=== PATIENT | female | born 1960 | race Caucasian/White ===

== ENCOUNTER 2018-11-21 02:50 | Emergency (ER) | payer OTHER ==
[~2018-11-21] VITALS: Wt 74.5 kg
[2018-11-21] MEDS ORDERED: METHYLPREDNISOLONE 125 MG INJ IV ONE (03:30)
[2018-11-21] MEDS ORDERED: DIPHENHYDRAMINE 50 MG INJ IV ONE (03:30)
[2018-11-21] MEDS ORDERED: FAMOTIDINE 20 MG INJ IV ONE (03:30)
[2018-11-21] MEDS ORDERED: PRED20TA PO (03:34)
--- NOTE | 2018-11-21 03:52 | ERD ---
ER Documentation Chief Complaint Chief Complaint C/O FEVER AND RED, ITCHY SKIN X'S 1 DAY HPI 58-year-old female presents with redness and itching across her face bilateral arms and trunk. Says it started 2 hours ago. Denies any history of allergies. Denies wheezing or difficulty breathing. Denies tongue or lip swelling. States that she has not started any new foods, drugs, soaps, detergents. Denies past medical history. Denies allergies. Denies surgeries. Denies alcohol, tobacco, drug use. Up to date on vaccines. ROS All systems reviewed and are negative except as per history of present illness. Medications Home Meds Active Scripts Acetaminophen* (Tylophen*) 500 Mg Capsule, 2 CAP PO Q8H PRN for HEADACHE, #20 CAP 0 Refills Prov:BONNIE GILES 11/21/18 Prednisone* (Prednisone*) 20 Mg Tab, 40 MG PO DAILY for allergic reaction for 5 Days, #10 TAB 0 Refills Prov:BONNIE GILES 11/21/18 Allergies Allergies: Coded Allergies: No Known Allergy (Unverified , 11/21/18) PMhx/Soc Medical and Surgical Hx: pt denies Surgical Hx Hx Cardiac Disorders: Yes (HTN) Hx Alcohol Use: No Hx Substance Use: No Hx Tobacco Use: No Smoking Status: Never smoker FmHx Family History: No diabetes, No coronary disease, No other Physical Exam Vitals Vital Signs Date Temp Pulse Resp B/P (MAP) Pulse Ox O2 O2 Flow FiO2 Time Delivery Rate 11/21/18 98.8 80 20 170/78 99 Room Air 05:00 (108) 11/21/18 98.0 87 18 132/98 98 02:56 (109) Physical Exam General: Well developed, well nourished. No acute distress.n Eyes: No icterus, lesions, injection, or edema. Throat: No tonsillar erythema, edema, or exudates noted bilaterally. No masses, lesions, or abscesses noted. Uvula midline. Airway patent. Mouth: Mucus membranes moist. No drooling, ulcers, bleeding, or lesions, noted. Neck: No lymphadenopathy noted. Tracheal midline, no goiter or nodules noted. No JVD. Heart: RR w/o murmur, rubs, or gallops. Lungs: Clear to auscultation bilaterally w/o wheezes, crackles, rhonchi. Symmetric rise and fall. Equal breath sounds. Skin: Urticarious lesions noted to bilateral arms and trunk. No vesicles or papules noted. Psych: Normal mood and affect. Results 24 hrs Current Medications Medications Dose Sig/Pamela Start Time Status Last (Trade) Ordered Route PRN Stop Time Admin Dose Reason Admin Famotidine 20 mg ONCE ONCE 11/21/18 DC 11/21/18 (Pepcid Iv) IV 03:30 11/21/18 03:47 03:31 50 mg ONCE ONCE 11/21/18 DC 11/21/18 Diphenhydrami IV 03:30 11/21/18 03:47 ne HCl 03:31 (Benadryl) 125 mg ONCE ONCE 11/21/18 DC 11/21/18 Methylprednis IV 03:30 11/21/18 03:47 olone Sodium 03:31 Succinate (Solu-Medrol) Procedures/MDM ER Course: Pepcid, Benadryl, prednisone given. Urticaria and pruritis resolved. MDM: 58-year-old female presents with redness and itching across her face bilateral arms and trunk. Says it started 2 hours ago. Denies any history of allergies. Denies wheezing or difficulty breathing. Denies tongue or lip swelling. States that she has not started any new foods, drugs, soaps, detergents. Patient was treated for allergic reaction ER discharged with Rx for 5 days prednisone. Low suspicion for anaphylaxis based on exam and history. I have low suspicion for angioedema on exam and history. After treatment was given patient stated she had a mild headache with no focal deficits so I prescribed her tylenol. Patient discharged with strict ER precautions. Patient advised to follow up with PMD. All questions answered at discharge. Departure Diagnosis: Primary Impression: Allergic reaction Encounter type: initial encounter Qualified Codes: T78.40XA - Allergy, unspecified, initial encounter Condition: Stable Referrals: [facility] YOU HAVE RECEIVED A MEDICAL SCREENING EXAM AND THE RESULTS INDICATE THAT YOU DO NOT HAVE A CONDITION THAT REQUIRES URGENT TREATMENT IN THE EMERGENCY DEPARTMENT. FURTHER EVALUATION AND TREATMENT OF YOUR CONDITION CAN WAIT UNTIL YOU ARE SEEN IN YOUR DOCTORS OFFICE WITHIN THE NEXT 1-2 DAYS. IT IS YOUR RESPONSIBILITY TO MAKE AN APPOINTMENT FOR FOLOW-UP CARE. IF YOU HAVE A PRIMARY DOCTOR --you should call your primary doctor and schedule an appointment IF YOU DO NOT HAVE A PRIMARY DOCTOR YOU CAN CALL OUR PHYSICIAN REFERRAL HOTLINE AT IF YOU CAN NOT AFFORD TO SEE A PHYSICIAN YOU CAN CHOSE FROM THE FOLLOWING [facility] [address] [facility] [address] [facility] [address] [facility] [address] [facility] [address] [facility]. [facility]. [address] Additional Instructions: FOLLOW UP WITH YOUR PRIMARY CARE PHYSICIAN TOMORROW.Return to this facility if you are not improving as expected. BONNIE GILES Nov 21, 2018 03:51
[2018-11-21] MEDS ORDERED: ACET500C5 PO (04:38)
[2018-11-21 05:00] VITALS: BP 170/78; PULSE 80; RESP 20
== END 2018-11-21 05:01 | disposition home or self-care (01) ==
LOC: FTE 02:50
DX: L50.9 Urticaria, unspecified (principal); I10 Essential (primary) hypertension
CPT/HCPCS: 96374; 96375; J1200; J2930; Z7502; Z7610

== ENCOUNTER 2019-03-13 08:12 | Emergency (ER) | payer OTHER ==
[~2019-03-13] VITALS: Wt 71.4 kg
[~2019-03-13 08:12] MED LIST: ACET500C5 PO; PRED20TA PO
[2019-03-13 08:16] VITALS: BP 147/69; PULSE 78; RESP 20
[2019-03-13] MEDS ORDERED: ACETAMINOPHEN 500 MG TAB PO STA (08:48)
[2019-03-13] MEDS ORDERED: DEXAMETHASONE 10 MG/ML 1 ML INJ IM ONE (09:00)
[2019-03-13] MEDS ORDERED: BENZ-6 PO (10:04)
[2019-03-13] MEDS ORDERED: ACET500C5 PO (10:04)
[2019-03-13] MEDS ORDERED: GUAI118L22 PO (10:04)
[2019-03-13] MEDS ORDERED: CETI10TA19 PO (10:07)
--- NOTE | 2019-03-13 11:11 | ERD ---
ER Documentation Chief Complaint Chief Complaint cough w phlegm HPI History of Present Illness: 58-year-old female with past medical history of hypertension coming in today with complaint of productive cough, headache, body aches. Patient reports symptoms have been present for 2 to 3 days. Patient reports she feels like she has a lot of chest congestioN which she is unable to get phlegm up. Patient denies any other associated symptoms At home pharmacological/nonpharmacological treatment for symptoms: Vicks VapoRub with some relief Denies social concerns; Denies recent foreign travel ROS All systems reviewed and are negative except as per history of present illness. Medications Home Meds Active Scripts Cetirizine Hcl* (Cetirizine Hcl*) 10 Mg Tablet, 10 MG PO DAILY for COUGH/ALLERGIES, #30 TAB Prov:NAINA CHAVEZ V CLINICAL NURSING INSTRUCTOR 03/13/19 Guaifenesin/Codeine Phosphate (CHERATUSSIN AC SYRUP) 118 Ml Liquid, 10 ML PO Q8 for COUGH/CHEST CONGESTION, #90 ML Prov:NAINA CHAVEZ V CLINICAL NURSING INSTRUCTOR 03/13/19 Benzonatate* (Tessalon Perle*) 100 Mg Capsule, 100 MG PO Q8H PRN for COUGH, #21 CAP Prov:NAINA CHAVEZ V CLINICAL NURSING INSTRUCTOR 03/13/19 Acetaminophen* (Tylophen*) 500 Mg Capsule, 2 CAP PO Q8H PRN for PAIN AND OR ELEVATED TEMP, #20 CAP Prov:NAINA CHAVEZ V CLINICAL NURSING INSTRUCTOR 03/13/19 Acetaminophen* (Tylophen*) 500 Mg Capsule, 2 CAP PO Q8H PRN for HEADACHE, #20 C AP 0 Refills Prov:BONNIE GILES 11/21/18 Prednisone* (Prednisone*) 20 Mg Tab, 40 MG PO DAILY for allergic reaction for 5 Days, #10 TAB 0 Refills Prov:BONNIE GILES 11/21/18 Allergies Allergies: Coded Allergies: No Known Allergy (Unverified , 11/21/18) PMhx/Soc Medical and Surgical Hx: pt denies Medical Hx, pt denies Surgical Hx Hx Cardiac Disorders: Yes (HTN) Hx Alcohol Use: No Hx Substance Use: No Hx Tobacco Use: No Smoking Status: Never smoker FmHx Family History: No diabetes, No coronary disease Physical Exam Vitals Vital Signs Date Temp Pulse Resp B/P (MAP) Pulse Ox O2 O2 Flow FiO2 Time Delivery Rate 03/13/19 99.4 78 20 147/69 99 08:16 (95) Physical Exam Const: No acute distress, afebrile Head: Atraumatic, no tenderness to palpation over his maxillary or frontal sinuses Eyes: Normal Conjunctiva ENT: Normal External Ears, Nose. Oropharynx erythematous, 1+ tonsils, no tonsillar exudate. Neck: Full range of motion. No meningismus. Resp: Clear to auscultation bilaterally Cardio: Regular rate and rhythm, no murmurs Abd: Soft, non tender, non distended. No guarding, no masses, no rigidity Skin: No petechiae or rashes Back: No midline or flank tenderness Ext: No cyanosis, or edema Neur: Awake and alert x3, speaking in clear sentences, no focal deficits or facial asymmetry Psych: Normal Mood and Affect Results 24 hrs Current Medications Medications Dose Sig/Pamela Start Time Status Last (Trade) Ordered Route PRN Stop Time Admin Dose Reason Admin 1,000 mg ONCE STAT 03/13/19 DC 03/13/19 Acetaminophen PO 08:48 09:07 (Tylenol 03/13/19 08:49 Tab) 8 mg ONCE ONCE 03/13/19 DC 03/13/19 Dexamethasone IM 09:00 09:07 (Decadron) 03/13/19 09:01 Procedures/MDM ED course includes a thorough examination and history. Medications: Dexamethasone, acetaminophen Imaging: -- Labs: -- Low suspicion for life-threatening medical emergency. Low suspicion for infectious emergency that requires hospitalization or immediate surgical intervention. Low suspicion for pneumonia, no diminished lung sounds or wheezing. Otherwise healthy patient presenting with constellation of symptoms likely representing uncomplicated productive cough secondary to viral syndrome as characterized by history, physical exam findings. Patient likely with early bronchitis. Will DO symptomatic treatment with strict follow-up and return precautions. No respiratory distress, otherwise relatively well appearing and nontoxic. Patient educated on diagnoses, prescriptions, follow-up care, return precautions. Strict return precautions given for worsening condition; questions answered discharge. Disposition for discharge with followup in 2 days with PCP/clinic. Departure Diagnosis: Primary Impression: Viral syndrome Additional Impression: Productive cough Condition: Stable Patient Instructions: Bronchitis, No Antibiotic (Adult), Viral Syndrome (Adult) Referrals: [facility]) Usted se rausch hecho un examen mdico de control que le indica que no est en eulalia condicin que requiera tratamiento urgente en el Departamento de Emergencia. Un estudio ms profundo y el tratamiento de cuellar condicin pueden esperar sin ningn riesgo hasta que usted sea atendida/o en el consultorio de cuellar mdico o eulalia clnica. Es responsabilidad suya arreglar eulalia van para el seguimiento del kyaw. MANEJO DE CONDICIONES NO URGENTES EN EL FUTURO 1) Si usted tiene un mdico de atencin primaria: Usted debera llamar a cuellar mdico de atencin primaria antes de venir al departamento de emergencia. Despus de las horas de consultorio, cuellar doctor o cuellar asociado/a est disponible por telfono. El mdico o enfermero de clint en el servicio telefnico puede asesorarle por bereket medio para atender el problema, o kyaw contrario se puede programar eulalia van. 2) Si usted no tiene un mdico de atencin primaria: Llame al mdico o clnica de referencia que aparece abajo faheem las horas de consultorio para hacer eulalia van para que le vean. CLINICAS: [facility] [phone] [address] [facility] [phone] [facility] [phone] [facility] [facility] [place] [id number] [phone] [facility]. [place] [phone] [address] [facility]. [phone] [facility] () Usted se rausch hecho un examen mdico de control que le indica que no est en eulalia condicin que requiera tratamiento urgente en el Departamento de Emergencia. Un estudio ms profundo y el tratamiento de cuellar condicin pueden esperar sin ningn riesgo hasta que usted sea atendida/o en el consultorio de cuellar mdico o eulalia clnica. Es responsabilidad suya arreglar eulalia van para el seguimiento del kyaw. MANEJO DE CONDICIONES NO URGENTES EN EL FUTURO 1) Si usted tiene un mdico de atencin primaria: Usted debera llamar a cuellar mdico de atencin primaria antes de venir al departamento de emergencia. Despus de las horas de consultorio, cuellar doctor o cuellar asociado/a est disponible por telfono. El mdico o enfermero de clint en el servicio telefnico puede asesorarle por bereket medio para atender el problema, o kyaw contrario se puede programar eulalia van. 2) Si usted no tiene un mdico de atencin primaria: Llame al mdico o condado institucions de referencia que aparece abajo faheem las horas de consultorio para hacer eulalia van para que le vean. SI USTED NO PUEDE PAGAR PARA REKHA UN MEDICO puede ir a: [facility] [address] [place] [address] [facility] [address] [place] [address] [facility] [address] [place] [address] [address] [facility] [address] [place], [place] [id number] Additional Instructions: La traduccin de constance documento se realiz utilizando el traductor de [employer]. Por favor, disculpe cualquier error. Muchas ajit por permitirnos participar en cuellar cuidado. Cuellar jacklyn y seguridad es nuestra principal prioridad en [facility]. Es importante leer todas las instrucciones de marcus y la educacin que se proporcionan en cuellar paquete de marcus. Llame a cuellar mdico de atencin primaria MAANA para eulalia van faheem los prximos 2 a 4 shook y lleve toda la informacin y los medicamentos recetados. Llene las recetas y siga exactamente las instrucciones de la etiqueta. --Benzonatate es un medicamento que ayuda con la supresin de la tos. Constance medicamento no le keyona sueo. -Cetirizina aziza antihistamnico que no debe causar somnolencia; tome constance medicamento todos los shook para los sntomas de alergia / tos / secrecin nasal. --Acetaminofeno aziza medicamento para el dolor y / o fiebre. [place] constance medicamento segn sea necesario para el dolor leve a moderado. Constance medicamento no causar somnolencia. -Guaifenesina / codena es un uso de medicamentosD para aflojar las secreciones de moco y para ayudar a suprimir la tos. Constance medicamento puede causarle sueo. No opere maquinaria pesada despus de [place] constance medicamento. Si los sntomas empeoran y cuellar proveedor no est disponible, regrese inmediatamente al Departamento de Emergencias. ---- Translation of this document was done using [employer] translate. Please excuse any errors. Thank you very much for allowing us to participate in your care. Your health and safety is our top priority at [facility]. It is important to read all discharge instructions and education provided in your discharge packet. Call your primary care doctor TOMORROW for an appointment during the next 2-4 days and bring all the information and medications prescribed. Have prescriptions filled and follow precisely the directions on the label. --Benzonatate is a medication that will help with cough suppression. This medication will not make you drowsy. -Cetirizine as an antihistamine that should not cause drowsiness; take this medication every day for allergy-like symptoms/cough/runny nose. --Acetaminophen as a medication for pain and/or fever. Take this medication as needed for mild to moderate pain. This medication will not cause drowsiness. -Guaifenesin/codeine is a medication useD to loosen mucus secretions and to help suppress cough. This medication may make you sleepy. Do not operate heavy machinery after taking this medication. If the symptoms get worse and your provider is unavailable, return to the Emergency Department immediately. NAINA CHAVEZ NP Mar 13, 2019 11:11
== END 2019-03-13 10:21 | disposition home or self-care (01) ==
LOC: FTE 08:12
DX: B34.9 Viral infection, unspecified (principal); I10 Essential (primary) hypertension
CPT/HCPCS: J1100; Z7610; 96372